=== PATIENT | female | born 1995 | race Caucasian/White ===

== ENCOUNTER 2018-11-22 16:02 | Outpatient (CLI) | payer OTHER ==
[~2018-11-22] VITALS: Ht 152.4 cm; Wt 81.8 kg
[~2018-11-22 16:02] MED LIST: CARB15DR50 BOTH EARS
[2018-11-22 16:13] VITALS: BP 105/56; PULSE 100; RESP 18; Ht 152.4 cm; Wt 81.8 kg
== END 2018-11-22 17:35 | disposition home or self-care (01) ==
LOC: OBT 16:02 → L-D 16:03 → OBT 17:35
PROVIDERS: ATTEND Obstetrics & Gynecology Gynecology
DX: O36.8130 Decreased fetal movements, third trimester, not applicable or unspecified (principal); Z3A.36 36 weeks gestation of pregnancy
CPT/HCPCS: 76815; 76818; Z7500; G0463